=== PATIENT | female | born 1985 | race Hispanic/Latino ===

== ENCOUNTER 2016-10-15 19:26 | Emergency (ER) | payer OTHER ==
[~2016-10-15] VITALS: Ht 162.6 cm; Wt 108.0 kg
[~2016-10-15 19:26] MED LIST: HYDR-4003 PO; METO-301 PO; ONDA4TAB9 PO; PNV91TAB3 PO
[2016-10-15 19:37] VITALS: BP 119/78; PULSE 80; RESP 16; O2SAT 99
[2016-10-15 20:49] LABS: BASOPHILS % (AUTO) 0.4 % (0-3); EOSINOPHILS % (AUTO) 4.5 % (0-5); MONOCYTES % (AUTO) 13.9 % (4-12); NEUTROPHILS % (AUTO) 56.5 % (40-74); Platelet Count 302 bil/L (150-400)
--- NOTE | 2016-10-15 21:16 | ED.REPORT ---
HPI-Abd Pain F Under 40 Date of Service Oct 15, 2016 ED Provider: Corey Murillo Patient is a 31 year old female who is 9 weeks who presents to the ED complaining of nausea onset 3 days ago. Associated symptoms include fatigue and a mild headache onset tonight. Saturday she was vomiting all day but her vomiting has subsided but she is still nauseous when she eats or drinks. She denies fever, diarrhea, dysuria, cough, or any other symptoms. Her son recently had similar symptoms. Nursing Notes Stated Complaint: NAUSEA/ 8 WEEKS Chief Complaint: Female Abdominal Pain Nursing Notes Reviewed: Yes Allergies: Coded Allergies: No Known Allergies (Verified Allergy, Unknown, 10/15/16) Scheduled Cephalexin (Keflex) 500 Mg Capsule 500 MG PO TID Pnv95/Ferrous Fumarate/FA ( Caplet) 28 Mg Iron-800 Mcg Tablet 1 EACH PO DAILY Promethazine HCl (Phenergan) 25 Mg Supp.rect 25 MG RC TID Scheduled PRN Hydrocodone-Acetaminophen 5-325 mg (Hydrocodone-Acetaminophen 5-325 mg) 1 Each Tablet 1-2 TABLET PO Q4H PRN PRN For Pain Metoclopramide (Reglan) 10 Mg Tablet 10 MG PO QID PRN PRN UNKNOWN Ondansetron ODT (Zofran ODT) 4 Mg Tablet 4 MG PO Q4H PRN PRN For Nausea General Time Seen by MD: 21:15 Chief Complaint Nausea Hx Obtained From: Patient Arrived By: Walk-in Sudden in Onset?: Yes Onset Occurred: 3 days ago Symptom Duration: Since onset Past Medical History Past Medical History Notes: ECHO 01/2016 EF 60-65% Past Medical History Healthy Denies: Diabetes mellitus Past Surgical History Denies Smoking History Unknown if Ever Smoker Social History Alcohol Use: Denies alcohol use Drug Use: Denies drug use Ambulatory Status Independent Review of Systems Constitutional: Reports: Fatigue, Denies: Fever Respiratory: Denies: Non-productive cough GI: Reports: Nausea, Denies: Diarrhea Female: Denies: Dysuria Complete sys rev & neg: except as marked. Physical Exam Initial Vital Signs Vital Signs (First) Date Time Temp Pulse Resp B/P Pulse Ox O2 Delivery O2 Flow Rate FiO2 10/15/16 19:37 36.2 80 16 119/78 99 Room Air Initial VS: Unavailable Head / Eyes: Atraumatic, Normocephalic Skin: Warm, Dry Neurologic: Alert, Oriented, Nonfocal Psychiatric: Mood/affect normal, Behavior normal, Normal thought content General/Constitutional: Awake, Alert, Well developed, Well hydrated Respiratory / Chest: Breath sounds NL, Breath sounds = bilat, No respiratory distress Cardiovascular: Heart rate NL, Regular rhythm, Heart sounds NL Abdomen: Soft, Non-tender Back: Inspection NL, No CVA tenderness Interpretation & Diagnostics Lab Results Interpretation Result Diagram: 10/15/16203310/15/162033 Test 10/15/16 20:34 10/15/16 21:44 White Blood Count 6.7th/mm3 (3.8-10.1) Red Blood Count 4.27mil/mm3 (3.90-5.20) Hemoglobin 12.8g/dL (12.0-15.6) Hematocrit 38.0% (35.0-46.0) Mean Corpuscular Volume 89.0fL (81-100) Mean Corpuscular Hemoglobin 30.0pg (27.0-35.0) Mean Corpuscular Hemoglobin Concent 33.7% (32.0-37.0) Red Cell Distribution Width 14.0% (12.3-15.4) Platelet Count 302bil/L (150-400) Neutrophils (%) (Auto) 56.5% (40-74) Lymphocytes (%) (Auto) 24.4% (14-46) Monocytes (%) (Auto) 13.9% (4-12) Eosinophils (%) (Auto) 4.5% (0-5) Basophils (%) (Auto) 0.4% (0-3) Sodium Level 138mEq/L (134-144) Potassium Level 4.4mEq/L (3.5-5.2) Chloride Level 102mEq/L (97-108) Carbon Dioxide Level 22mmol/L (18-29) Blood Urea Nitrogen 6mg/dL (6-20) Creatinine 0.51mg/dL (0.57-1.00) Estimat Glomerular Filtration Rate 201mL/min (>59) Glucose Level 84mg/dL (60-99) Calcium Level 8.8mg/dL (8.5-10.1) Total Bilirubin 0.2mg/dL (0.0-1.2) Aspartate Amino Transf (AST/SGOT) 16U/L (0-50) Alanine Aminotransferase (ALT/SGPT) 15U/L (0-32) Alkaline Phosphatase 56U/L (25-150) Total Protein 7.3g/dL (6.4-8.4) Albumin 4.0g/dL (3.4-5.0) Hold Vinson Top Tube Received (Received) Urine Color Dark yellow (YELLOW) Urine Appearance Slightly cloudy Urine pH 6.5 (5.0-8.0) Urine Specific [place] 1.025 (1.003-1.035) Urine Protein Negativemg/dL (NEG,TRACE) Urine Glucose (UA) Negativemg/dL (NEGATIVE) Urine Ketones Negativemg/dL (NEGATIVE) Urine Occult Blood Small (NEGATIVE) Urine Nitrite Negative (NEGATIVE) Urine Bilirubin Negative (NEGATIVE) Urine Urobilinogen Normalmg/dL (NORMAL) Urine Leukocyte Esterase Negative (NEGATIVE) Urine RBC 3-10/hpf (0-2) Urine WBC 6-10/hpf (0-5) Urine Epithelial Cells Many/hpf (NONE-MOD) Urine Crystals None seen (NONE SEEN) Urine Bacteria Moderate/hpf (NONE-FEW) Urine Hyaline Casts None/lpf (NONE) Urine Granular Casts None seen (NONE SEEN) Urine Waxy Casts None seen (NONE SEEN) Urine Red Blood Cell Casts None seen (NONE SEEN) Urine White Blood Cell Casts None seen (NONE SEEN) Urine Mucus Present (None Seen) Urine Trichomonas None seen (NONE SEEN) Urine Yeast None (NONE SEEN) Urine Culture Reflexed Indicated Re-Eval/Medical Decision Med Decision/Clinical Course Med Decision/Clinical Course: 31-year-old female currently nine weeks presents with nausea and vomiting that appears to be a gastroenteritis superimposed on her . She is improved here after Phenergan, given an preference ondansetron until thirteen weeks. She is able take fluids here. No indication for IV hydration as she is able to take by mouth fluids. Home with Phenergan suppositories when necessary. Re-Evaluation/Progress : Time of Eval: 22:23 )( Re-Eval Abdomen: Soft, Non-tender Re-Evaluation/Progress Note: Rechecked patient. Discussed lab results. Pt has not had any fluids. Discussed need to drink fluids. Discussed plan for discharge. Patient understands and agrees with plan. All questions addressed at this time. Counseled Regarding: Diagnosis, Lab results, Need for follow-up, When/why to return to ED Discharge & Departure Shift Change Sign-Out Response to Therapy: Improved Primary Impression: Vomiting Vomiting type: unspecified Vomiting Intractability: non-intractable Nausea presence: with nausea Qualified Code: R11.2 - Nausea with vomiting, unspecified Additional Impressions: Urinary tract infection affecting care of mother in first trimester, antepartum Gastroenteritis First trimester Disposition: Home Discharge Condition All VS Reviewed: Yes Condition: Stable Patient Instructions: Acute Nausea and Vomiting (ED), Gastroenteritis (ED), Urinary Tract Infection in Women (ED) Additional Instructions: Phenergan suppository up to three times daily if needed for nausea. Drink clear fluids such as Gatorade or Powerade and progress slowly with soups and simple starchy foods, back to regular diet. Urinary urinary tract infection. I can contribute to the nausea. Begin Keflex three times daily for ten days. Referrals: Eric Mancia MD (PCP) Scribe Attestation Portions of this note were transcribed by Stephy Shell. I, Dr. Murillo personally performed the history, physical exam and medical decision-making; I reviewed and confirmed the accuracy of the information in the transcribed note. Signed by: Stephy Shell 10/15/16, 0369 copies to: Eric Mancia MD; [facility] Madhu Murillo MD Oct 15, 2016 21:16 STEPHY SHELL Oct 15, 2016 21:27
[2016-10-15] MEDS ORDERED: Promethazine 25 mg/mL Inj IM ONE (21:30)
[2016-10-15 22:16] LABS: APPEARANCE,URINE SLIGHTLY CLOUDY (CLEAR,HAZY); COLOR,URINE DARK YELLOW (YELLOW); OCCULT BLOOD,URINE SMALL (NEGATIVE); PH,URINE 6.5 (5.0-8.0); UROBILINOGEN,URINE NORMAL (NORMAL)
[2016-10-15] MEDS ORDERED: CEPH-512 PO ×2 (22:29→22:47)
[2016-10-15] MEDS ORDERED: PROM25SU46 RC (22:32)
[2016-10-15 22:53] VITALS: BP 108/72; PULSE 75; O2SAT 97
== END 2016-10-15 22:53 | disposition home or self-care (01) ==
LOC: SED 19:26
DX: O21.0 Mild hyperemesis gravidarum (principal); O23.91 Unspecified genitourinary tract infection in pregnancy, first trimester; O26.91 Pregnancy related conditions, unspecified, first trimester; N39.0 Urinary tract infection, site not specified; K52.9 Noninfective gastroenteritis and colitis, unspecified; Z3A.09 9 weeks gestation of pregnancy
CPT/HCPCS: 36415; 80053; 81000; 85025; 87086; 87088; 96372; 99284; J2550

== ENCOUNTER 2016-10-18 13:49 | Emergency (ER) | payer OTHER ==
[~2016-10-18] VITALS: Ht 162.6 cm; Wt 109.1 kg
[~2016-10-18 13:49] MED LIST changes: +CEPH-512 PO; +PROM25SU46 RC
[2016-10-18 13:53] VITALS: BP 112/79; PULSE 83; RESP 18; O2SAT 98
--- NOTE | 2016-10-18 15:49 | ED.REPORT ---
HPI-Preg Under 20 Weeks Date of Service Oct 18, 2016 ED Provider: Felix Desouza DO The patient is a 31 year old female who is currently 9 weeks , presenting to the emergency department complaining of vaginal bleeding. She noticed a small amount of blood with wiping 2 days ago. The bleeding has increased since onset and she has noticed some clots. She has not passed any tissue. She has also experienced intermittent abdominal cramping and lower back pain. Her abdominal cramping is worse compared to a normal period. She did not have early bleeding with her previous pregnancies. On Saturday she had nausea and vomiting. She was seen in the emergency department for this on Saturday and discharged home with Phenergan suppositories. These symptoms are now resolved. Nursing Notes Stated Complaint: 9 WEEKS /BLEEDING Chief Complaint: Female Abdominal Pain Nursing Notes Reviewed: Yes Allergies: Coded Allergies: No Known Allergies (Verified Allergy, Unknown, 10/18/16) Scheduled Cephalexin (Keflex) 500 Mg Capsule 500 MG PO TID Pnv95/Ferrous Fumarate/FA ( Caplet) 28 Mg Iron-800 Mcg Tablet 1 EACH PO DAILY Promethazine HCl (Phenergan) 25 Mg Supp.rect 25 MG RC TID Scheduled PRN Hydrocodone-Acetaminophen 5-325 mg (Hydrocodone-Acetaminophen 5-325 mg) 1 Each Tablet 1-2 TABLET PO Q4H PRN PRN For Pain Metoclopramide (Reglan) 10 Mg Tablet 10 MG PO QID PRN PRN UNKNOWN Ondansetron ODT (Zofran ODT) 4 Mg Tablet 4 MG PO Q4H PRN PRN For Nausea General Time Seen by Provider: 15:51 Chief Complaint Abdominal cramping, Vaginal bleeding Context: : Known 1st trim , ... (5), Para... (4) Hx Obtained From: Patient Arrived By: Walk-in Onset Occurred: 2 days ago Symptom Duration: Since onset Progression Since Onset: Constant Location: : Abdomen lower Quality: Cramping Radiation: : None Severity: Current: Mild Severity: Maximum: Moderate Recent Healthcare: No recent hospitalization, Recent doctor visit Similar Sx Previous: No Past Medical History Past Medical History Notes: ECHO 01/2016 EF 60-65% Past Medical History , RH positive Past Surgical History Denies Smoking History Unknown if Ever Smoker Social History Alcohol Use: Denies alcohol use Drug Use: Denies drug use Other Social History: Good social support, , Local resident Ambulatory Status Independent Review of Systems GI: Reports: Abdominal pain, Denies: Diarrhea, Nausea, Vomiting Female: Reports: Pelvic pain, , Vaginal bleeding - abnl Musculoskeletal: Reports: Back pain Complete sys rev & neg: except as marked. Physical Exam Initial Vital Signs Vital Signs (First) Date Time Temp Pulse Resp B/P Pulse Ox O2 Delivery O2 Flow Rate FiO2 10/18/16 13:53 36.4 83 18 112/79 98 Room Air Initial VS: Reviewed Head / Eyes: Atraumatic, Normocephalic, PERRL ENT: Mucous membranes moist, Conjunctiva normal, No scleral icterus Neck: Supple, Non-tender, Full range of motion Respiratory: Breath sounds normal, Clear to auscultation, No respiratory distress Cardiovascular: Regular rate & rhythm, Heart sounds normal, Intact distal pulses Back: No CVA tenderness Lymphatic: No lymphadenopathy Extremities: Vascular intact, Neuro intact, No swelling, No tenderness Skin: Warm, Dry, No cyanosis Neurologic: Alert, Oriented, Nonfocal Psychiatric: Mood/affect normal, Behavior normal, Normal thought content General/Constitutional: Awake, Alert Abdomen: Atraumatic, Soft, Non-tender, No guarding, No rebound, BS normoactive , No distention, No hernia, No palpable mass, No pulsatile mass Female Genitourinary: Exam deferred Interpretation & Diagnostics Interpretation & Diagnostics: Bedside ultrasound: IUP with good heart tones Lab Results Interpretation Result Diagram: 10/18/16 1603 Test 10/18/16 15:31 10/18/16 16:03 Hold Urine Received (Received) White Blood Count 8.9th/mm3 (3.8-10.1) Red Blood Count 4.43mil/mm3 (3.90-5.20) Hemoglobin 13.1g/dL (12.0-15.6) Hematocrit 38.9% (35.0-46.0) Mean Corpuscular Volume 87.8fL (81-100) Mean Corpuscular Hemoglobin 29.6pg (27.0-35.0) Mean Corpuscular Hemoglobin Concent 33.7% (32.0-37.0) Red Cell Distribution Width 13.8% (12.3-15.4) Platelet Count 319bil/L (150-400) Neutrophils (%) (Auto) 67.1% (40-74) Lymphocytes (%) (Auto) 21.3% (14-46) Monocytes (%) (Auto) 7.8% (4-12) Eosinophils (%) (Auto) 3.4% (0-5) Basophils (%) (Auto) 0.2% (0-3) HCG Beta Subunit [id number]/mL Hold Vinson Top Tube Received (Received) Re-Eval/Medical Decision Med Decision/Clinical Course Threatened , not hemorrhaging, will plan to discharge with close follow-up. Bedside ultrasound performed with obvious intrauterine and intact heart tones on bedside ultrasound. Source of Hx: Old records Re-Evaluation/Progress #1: Time of Eval: 17:24 Re-Evaluation/Progress Note: Completed bedside ultrasound. Re-Evaluation/Progress #2: Time of Eval: 17:34 Re-Evaluation/Progress Note: Discussed exam findings and lab results, diagnosis, and plan for discharge with outpatient followup. All questions were addressed. Counseled Regarding: Diagnosis, Lab results, Need for follow-up, When/why to return to ED Discharge & Departure Primary Impression: Threatened Disposition: Home Discharge Condition All VS Reviewed: Yes Condition: Stable Patient Instructions: (ED) Additional Instructions: Thank you for entrusting us with [place] [address]. We were able to see an intrauterine with good heart tones. Your is still at risk and it is important to followup. Call your OBGYN or regular doctor tomorrow to schedule a close followup appointment. Use Tylenol as needed for your pain. Do not insert anything inside your vagina for the next few days. Please return to the emergency department for any new or concerning symptoms. Referrals: Eric Mancia MD (PCP) Scribe Attestation Portions of this note were transcribed by Ariana Ochoa. I, Dr. Desouza personally performed the history, physical exam and medical decision-making; I reviewed and confirmed the accuracy of the information in the transcribed note. Signed by: Gabby Russo, 10/18/2016 and [id number]. copies to: Eric Mancia MD, Timothy S DO Oct 18, 2016 15:49 Ariana Ochoa Oct 18, 2016 15:56
[2016-10-18 16:15] LABS: BASOPHILS % (AUTO) 0.2 % (0-3); EOSINOPHILS % (AUTO) 3.4 % (0-5); MONOCYTES % (AUTO) 7.8 % (4-12); Mean Corpuscular Hemoglobin 29.6 pg (27.0-35.0); Mean Corpuscular Volume 87.8 fL (81-100); NEUTROPHILS % (AUTO) 67.1 % (40-74); Platelet Count 319 bil/L (150-400)
== END 2016-10-18 17:49 | disposition home or self-care (01) ==
LOC: SED 13:49
DX: O20.0 Threatened abortion (principal); Z3A.09 9 weeks gestation of pregnancy